=== PATIENT | male | born 2005 | race Caucasian/White ===

== ENCOUNTER 2024-01-28 19:16 | Emergency (ER) | payer OTHER ==
[2024-01-28 19:34] VITALS: BP 117/83; O2SAT 98
[2024-01-28 19:54] LABS: RAPID STREP SCREEN Negative (Negative)
--- NOTE | 2024-01-28 20:25 | ED Physician Documentation ---
History of Present Illness - Stated complaint Stated Complaint: COUGH/FEVER - Chief complaint Chief Complaint: General - Additonal information Additional information: 18-year-old male with no pertinent past medical history presents emergency department for 24-hours of flulike symptoms. [place] he attempted to go to work but was feeling so ill that he had to come home and his [facility] told him he needed to come to the emergency department for further evaluation. He says that he has sore throat fevers and chills unsure how high his fever has been nausea and vomiting. PD PAST MEDICAL HISTORY - Past Medical History Past Medical History: No Cardiovascular: None Respiratory: None Neuro: None Endocrine/Autoimmune: None GI: None : None HEENT: None Psych: None Musculoskeletal: None Derm: None - Past Surgical History Past Surgical History: No - Present Medications Home Medications: Ambulatory Orders Medication Instructions Recorded Confirmed Ondansetron Odt [Zofran Odt] 4 mg TL Q6H PRN #10 tablet 01/28/24 - Allergies Allergies/Adverse Reactions: Allergies Allergy/AdvReac Type Severity Reaction Status Date / Time No Known Drug Allergies Allergy Verified 01/28/24 19:33 - Social History Does the pt smoke?: No Smoking Status: Never smoker Does the pt drink ETOH?: No Does the pt have substance abuse?: No PD ED PE NORMAL - Vitals Vital signs reviewed: Yes - General General: Alert and oriented X 3, No acute distress, Well developed/nourished - HEENT HEENT: Moist mucous membranes, Pharynx benign - Neck Neck: Supple, no meningeal sign - Cardiac Cardiac: RRR - Respiratory Respiratory: No respiratory distress - Abdomen Abdomen: Normal bowel sounds, Soft, Non tender, Non distended, No organomegaly - Derm Derm: Normal color, Warm and dry, No rash Results - Vitals Vitals: Vital Signs - 24 hr 01/28/24 19:29 Temperature 37 C Heart Rate 90 Respiratory 16 Rate Blood Pressure 117/83 H O2 Saturation 98 Oxygen O2 Source Room air - Labs Labs: Laboratory Tests 01/28/24 01/28/24 19:39 19:39 Nasal Adenovirus (PCR) NOT DETECTED Nasal B. parapertussis DNA (PCR) NOT DETECTED Nasal Coronavir 229E PCR NOT DETECTED Nasal Coronavir HKU1 PCR NOT DETECTED Nasal Coronavir NL63 PCR NOT DETECTED Nasal Coronavir OC43 PCR NOT DETECTED Nasal Enterovir/Rhinovir PCR DETECTED A Nasal Influenza B PCR NOT DETECTED Nasal Influenza A PCR NOT DETECTED Nasal Parainfluen 1 PCR NOT DETECTED Nasal Parainfluen 2 PCR NOT DETECTED Nasal Parainfluen 3 PCR NOT DETECTED Nasal Parainfluen 4 PCR NOT DETECTED Nasal RSV (PCR) NOT DETECTED Nasal B.pertussis DNA PCR NOT DETECTED Nasal C.pneumoniae (PCR) NOT DETECTED Rashad Human Metapneumo PCR NOT DETECTED Nasal M.pneumoniae (PCR) NOT DETECTED Nasal SARS-CoV-2 (PCR) NOT DETECTED Group A Strep Rapid Negative PD Medical Decision Making - ED course ED course: 18-year-old male presents emergency department for generalized malaise and flulike symptoms for 24 hours. He has not taken any Tylenol or ibuprofen at home. He also reports some sore throat. He was given Tylenol, ibuprofen, dexamethasone for sore throat and flulike symptoms. Respiratory swab came back positive for rhinovirus. He was informed of these results and was told to isolate from people until he is 24 hours without a fever without any antifever medication. Return precautions given patient told to follow-up with primary care provider as needed. All questions answered patient safe for discharge. Departure - Departure Disposition: Home, Self Care Clinical Impression: Rhinovirus Instructions: ED Viral Syndrome Prescriptions: Ondansetron Odt [Zofran Odt] 4 mg TL Q6H PRN #10 tablet PRN Reason: Nausea / Vomiting Comments: Thank you for trusting us with your care. We have given you some oral dexamethasone as well as some Tylenol ibuprofen to help with your symptoms. You have tested positive for rhinovirus. You should stay home and isolate until you are fever free for 24 hours without any antifever medications. You can continue to alternate between Tylenol ibuprofen to help with your symptoms make sure that you are drinking plenty of fluids and eating a healthy well-balanced diet to help with recovery. Forms: PCP List Discharge Date/Time: 01/28/24 21:07
[2024-01-28] MEDS: ONDANSETRON ODT 4 MG TABLET TL STA (20:34)
[2024-01-28] MEDS: IBUPROFEN 800 MG TABLET PO STA (20:34)
[2024-01-28] MEDS: ACETAMINOPHEN 500 MG TABLET PO STA (20:34)
[2024-01-28] MEDS: CHERRY SYRUP 10 ML UDC PO ONE (20:35)
[2024-01-28] MEDS: DEXAMETHASONE 10 MG/ML VIAL PO STA (20:35)
[2024-01-28 20:39] LABS: B. PARAPERTUSSIS- RESP PCR PAN NOT DETECTED; B. PERTUSSIS- RESP PCR PANEL NOT DETECTED; C. PNEUMONIAE- RESP PCR PANEL NOT DETECTED; CORONAVIRUS 229E-RESP PCR NOT DETECTED; CORONAVIRUS HKU1-RESP PCR NOT DETECTED; CORONAVIRUS NL63-RESP PCR NOT DETECTED; CORONAVIRUS OC43-RESP PCR NOT DETECTED; HUMAN METAPNEUMOVIRUS NOT DETECTED; INFLUENZA A- RESP PCR PANEL NOT DETECTED; INFLUENZA B - RESP PCR PANEL NOT DETECTED; M. PNEUMONIAE- RESP PCR PANEL NOT DETECTED; PARAINFLUENZA VIRUS 1 NOT DETECTED; PARAINFLUENZA VIRUS 2 NOT DETECTED; PARAINFLUENZA VIRUS 3 NOT DETECTED; PARAINFLUENZA VIRUS 4 NOT DETECTED; RHINOVIRUS/ENTEROVIRUS DETECTED; RSV- RESP PCR PANEL NOT DETECTED; SARS-CoV-2 -RESP PCR PANEL NOT DETECTED
== END 2024-01-28 21:07 | disposition home or self-care (01) ==
LOC: ED 19:16
DX: B34.8 Other viral infections of unspecified site (principal)
CPT/HCPCS: 87070; 87430; 87633; 99283; A9270; Q0162